=== PATIENT | male | born 1990 | race Caucasian/White ===

== ENCOUNTER 2016-10-06 19:21 | Emergency (ER) | payer OTHER ==
[~2016-10-06] VITALS: Ht 182.9 cm; Wt 88.5 kg
[2016-10-06 19:31] VITALS: BP 141/96
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
[2016-10-06] MEDS ORDERED: BACTROBAN15 GM TOP (21:25)
[2016-10-06] MEDS ORDERED: AUGMENTIN 875-1 EACH PO (21:25)
--- NOTE | 2016-10-06 21:56 | RADIOLOGY REPORT ---
EXAMINATION: XR ANKLE, LEFT CLINICAL INFORMATION: Pain status post injury COMPARISON: None TECHNIQUE: AP, lateral, and mortise views of the left ankle. FINDINGS: Prominent lateral soft tissue swelling. No acute fracture or dislocation. The ankle mortise is congruent. No ankle joint effusion. IMPRESSION: Lateral soft tissue swelling without acute fracture or malalignment.
[2016-10-06] MEDS ORDERED: ALPRAZOLAM0.5 M4 PO (22:14)
[2016-10-06] MEDS ORDERED: SUBOXONE 8 MG-1 EACH SL (22:15)
[2016-10-06] MEDS ORDERED: TRAZODONE HCL50 M1 PO (22:15)
[2016-10-06] MEDS ORDERED: OXYBUTYNIN CHLOR5 M2 PO (22:16)
[2016-10-06] MEDS ORDERED: ONDANSETRON HCL8 MG PO (22:16)
== END 2016-10-06 22:41 ==
LOC: ERH 19:21
DX: S01.511A Laceration without foreign body of lip, initial encounter (principal); S93.402A Sprain of unspecified ligament of left ankle, initial encounter; S09.90XA Unspecified injury of head, initial encounter; V48.0XXA Car driver injured in noncollision transport accident in nontraffic accident, initial encounter
CPT/HCPCS: 73610-LT